=== PATIENT | female | born 1995 | race African-American/Black ===

== ENCOUNTER 2023-07-01 16:01 | Inpatient (IN) | payer OTHER ==
[2023-07-01] MEDS: DINOPROSTONE 10 MG VAGINAL SUPPOSITORY VG ONE (17:40)
[2023-07-01 17:42] LABS: BASO % 0.2 % (0-2.0); EOS % 0.2 % (0-4.5); HEMATOCRIT 36.1 % (32.4-45.2); HEMOGLOBIN 12.1 GM/dL (10.7-15.3); MCH 26.1 pg (25.7-33.7); MCHC 33.5 g/dl (32.0-36.0); MEAN CELL VOLUME 77.9 fl (80-96); MEAN PLT VOLUME 8.9 fl (7.5-11.1); MONO % 11.1 % (3.8-10.2); NEUT % 71.5 % (42.8-82.8); PLATELET COUNT 166 10^3/uL (134-434); RBC 4.63 M/mm3 (3.60-5.2); RDW 19.7 % (11.6-15.6)
[2023-07-01 18:05] LABS: INR 0.95 (0.83-1.09)
[2023-07-01 18:08] LABS: ACTIVATED PTT 30.5 SECONDS (25.2-36.5)
[2023-07-01 18:11] LABS: POTASSIUM 3.4 mmol/L (3.5-5.1)
[2023-07-01 18:13] LABS: CALCIUM 8.9 mg/dL (8.5-10.1)
[2023-07-01 18:15] LABS: CREATININE 0.5 mg/dL (0.55-1.3)
[2023-07-01 18:23] VITALS: BMI 25.5
[2023-07-01] MEDS: ELECTROLYTE-148 SOLN 500 ML IV SCH (20:00)
[2023-07-01] MEDS: ELECTROLYTE-148 SOLN 1,000 ML IV SCH (20:35)
[2023-07-02] MEDS ORDERED: OXYTOCIN 30 UNITS in 0.9% NS 30 UNIT/500 ML INFUS.BAG IVPB ONE (07:02)
[2023-07-02] MEDS: OXYTOCIN 30 UNITS in 0.9% NS 30 UNIT/500 ML INFUS.BAG IVPB SCH (09:55)
[2023-07-02] MEDS ORDERED: FENTANYL/BUPIVACAINE/NS/PF - PCEA - 50 ML DISP.SYRIN EP ONE ×2 (17:25→22:32)
[2023-07-02] MEDS ORDERED: NALOXONE HCL 0.4 MG/ML VIAL IVPUSH PRN (17:28)
[2023-07-02] MEDS ORDERED: BUPIVACAINE HCL/PF 0.25% (2.5MG/ML) 10 ML VIAL ONE (17:30)
[2023-07-02] MEDS ORDERED: LIDO 2%/EPI 1:200000 PRESRVFRE (20 ML SDVIAL) ONE (17:30)
[2023-07-02] MEDS: FENTANYL/BUPIVACAINE/NS/PF - PCEA - 50 ML DISP.SYRIN EP SCH (17:50)
[2023-07-02] MEDS ORDERED: OXYTOCIN 20 UNITS in 0.9% NS 20 UNIT/1,000 ML INFUS.BAG IV ONE (22:26)
[2023-07-02] MEDS ORDERED: LIDOCAINE HCL 1% PRESERVATIVE FREE - 30ML VIAL ONE (22:26)
[2023-07-03] MEDS: OXYTOCIN 20 UNITS in 0.9% NS 20 UNIT/1,000 ML INFUS.BAG IV SCH (00:58)
[2023-07-03] MEDS ORDERED: IBUPROFEN 600 MG TABLET (FP) PO PRN (01:09)
[2023-07-03] MEDS ORDERED: oxyCODONE HCL 5 MG TABLET PO PRN (01:09)
[2023-07-03] MEDS ORDERED: BISACODYL 10 MG SUPP.RECT RC PRN (01:09)
[2023-07-03] MEDS ORDERED: ACETAMINOPHEN 325 MG TABLET (FP) PO PRN (01:09)
[2023-07-03] MEDS ORDERED: METHYLERGONOVINE MALEATE 0.2 MG/1 ML AMP IM PRN (01:09)
[2023-07-03] MEDS: BENZOCAINE 20% 57 GM BOTTLE TP PRN (02:05)
[2023-07-03 02:32] LABS: CORD BASE EXCESS -5.2 mmol/L (0-2); CORD HCO3 19.8 mmHg (20-29); CORD HCO3 20.2 mmHg (20-29); CORD pH 7.27 (7.14-7.44); CORD pH 7.332 (7.14-7.44)
[2023-07-03] MEDS: WITCH HAZEL 50% (TUCKS) 40 PAD/JAR PAD TP PRN (06:18)
[2023-07-03] MEDS: BENZOCAINE 28 GM HEMORRHOIDAL OINTMENT TP PRN (06:18)
[2023-07-03] MEDS: PRENATAL VITAMINS W/ FOLIC ACID TABLET (FP) PO SCH (09:13)
[2023-07-03 18:02] VITALS: RESP 18
[2023-07-04 08:34] LABS: BASO % 0.2 % (0-2.0); EOS % 0.7 % (0-4.5); HEMATOCRIT 29.1 % (32.4-45.2); HEMOGLOBIN 9.9 GM/dL (10.7-15.3); LYMPH % 12.3 % (8-40); MCH 26.7 pg (25.7-33.7); MEAN CELL VOLUME 78.7 fl (80-96); MONO % 6.9 % (3.8-10.2); NEUT % 79.9 % (42.8-82.8); PLATELET COUNT 136 10^3/uL (134-434); RDW 19.4 % (11.6-15.6); WHITE BLOOD COUNT 11.9 K/mm3 (4.0-10.0)
[2023-07-04] MEDS: SENNOSIDES/DOCUSATE COMBO (SENNA PLUS) TABLET (UD) PO PRN (21:42)
[2023-07-04 22:52] VITALS: TEMP 98.5
[2023-07-05 09:59] VITALS: BP 129/76; PULSE 80
== END 2023-07-05 12:45 | disposition home or self-care (01) | DRG 807 ==
LOC: JLDR 16:01 → J3W 07-03 03:25
PROVIDERS: ADMIT Obstetrics & Gynecology; ATTEND Obstetrics & Gynecology
PROC: 3E0P7VZ Introduction of Hormone into Female Reproductive, Via Natural or Artificial Opening (ICD-10-PCS; 2023-07-01)
PROC: 10E0XZZ Delivery of Products of Conception, External Approach (ICD-10-PCS; principal; 2023-07-03)
PROC: 0KQM0ZZ Repair Perineum Muscle, Open Approach (ICD-10-PCS; 2023-07-03)
PROC: 0W8NXZZ Division of Female Perineum, External Approach (ICD-10-PCS; 2023-07-03)
DX: O41.03X0 Oligohydramnios, third trimester, not applicable or unspecified (principal); Z37.0 Single live birth; O70.1 Second degree perineal laceration during delivery; Z3A.38 38 weeks gestation of pregnancy
CPT/HCPCS: 36415; 36600; 80048; 82803; 85025; 85610; 85730; 86780; 86803; 86850; 86900; 86901